=== PATIENT | female | born 1950 | race Caucasian/White ===

== ENCOUNTER → 2018-01-21 | Outpatient (CLI) | payer MEDICARE, BC ==
[~2018-01-21] MED LIST: CLOTRIM ANTIFUNGAL1% TP; DETROL LA4 PO
== END ==
LOC: MC.RAD 13:16
DX: Z12.31 Encounter for screening mammogram for malignant neoplasm of breast (principal)

== ENCOUNTER → 2018-04-15 | Outpatient (CLI) | payer MEDICARE, BC | LOC: COL.VAS 12:20 | DX: Z13.6 Encounter for screening for cardiovascular disorders (principal); M79.601 Pain in right arm; Z87.81 Personal history of (healed) traumatic fracture ==

== ENCOUNTER 2018-07-15 21:36 | Emergency (ER) | payer MEDICARE, BC ==
[~2018-07-15] VITALS: Ht 162.6 cm; Wt 68.2 kg
[2018-07-15 21:38] VITALS: BP 151/80; TEMP 98.3
[2018-07-15 21:48] LABS: COLLECTION METHOD CLEAN CATCH
[2018-07-15] MEDS ORDERED: DETROL LA 2 MG2 MG PO (22:01)
[2018-07-15 22:11] LABS: PH 7 (5-8); SQUAMOUS EPITHELIAL None Seen /hpf; URINE APPEARANCE Clear; URINE BACTERIA Rare /hpf; URINE BILIRUBIN Negative (NEGATIVE); URINE BLOOD 2+ (NEGATIVE); URINE COLOR Straw; URINE GLUCOSE Negative (NEGATIVE); URINE KETONE Negative (NEGATIVE); URINE LEUKOCYTE ESTERASE 3+ (NEGATIVE); URINE NITRATE Negative (NEGATIVE); URINE PROTEIN(semi-quant) Negative (NEGATIVE); URINE RBC 0-2 /hpf; URINE UROBILINOGEN Negative (NEGATIVE)
[2018-07-15] MEDS ORDERED: MACROBID 1100 MG/CAP PO (22:40)
[2018-07-15 22:50] VITALS: PULSE 70
== END 2018-07-15 22:50 | disposition home or self-care (01) ==
LOC: COL.ER 21:36
PROVIDERS: Nurse Practitioner
DX: N39.0 Urinary tract infection, site not specified (principal); Z88.0 Allergy status to penicillin; Z88.2 Allergy status to sulfonamides; Z90.49 Acquired absence of other specified parts of digestive tract; Z90.710 Acquired absence of both cervix and uterus; Z87.448 Personal history of other diseases of urinary system

== ENCOUNTER → 2019-03-16 | Outpatient (CLI) | payer MEDICARE, BC ==
[~2019-03-16] MED LIST changes: +DETROL LA 2 MG2 MG PO; +MACROBID 1100 MG/CAP PO
== END ==
LOC: MC.RAD 09:51
DX: Z12.31 Encounter for screening mammogram for malignant neoplasm of breast (principal)

== ENCOUNTER → 2020-04-03 | Outpatient (CLI) | payer MEDICARE, BC | LOC: MC.RAD 11:28 | DX: Z12.31 Encounter for screening mammogram for malignant neoplasm of breast (principal) ==

== ENCOUNTER → 2021-05-30 | Outpatient (CLI) | payer MEDICARE, BC | LOC: MC.RAD 09:25 | DX: Z12.31 Encounter for screening mammogram for malignant neoplasm of breast (principal) ==

== ENCOUNTER → 2023-03-10 | Outpatient (CLI) | payer MEDICARE, BC | LOC: COL.RAD 13:14 | DX: M47.26 Other spondylosis with radiculopathy, lumbar region (principal); M43.16 Spondylolisthesis, lumbar region; M48.07 Spinal stenosis, lumbosacral region ==